=== PATIENT | female | born 1980 | race American Indian/Alaskan Native ===

== ENCOUNTER 2018-06-30 18:26 | Emergency (ER) | payer SELFPAY ==
--- NOTE | 2018-06-30 18:42 | Emergency Department Report ---
Blank Doc - Documentation Documentation: 37 y/o female come in for sob, chest discomfort and feeling hot and shaky. Was in the heat at a bike show drinking ETOH.
[2018-06-30 19:00] LABS: Basophils % (Auto) 0.3 % (0.0-1.8); Eosinophils # (Auto) 0.1 K/mm3 (0.0-0.4); Eosinophils % (Auto) 0.5 % (0.0-4.3); Hematocrit 51.2 % (30.3-42.9); Hemoglobin 17.9 gm/dl (10.1-14.3); Lymphocytes % (Auto) 16.9 % (13.4-35.0); Mean Corpuscular HGB Conc 35 % (30-34); Mean Corpuscular Volume 94 fl (79-97); Monocytes # (Auto) 1.2 K/mm3 (0.0-0.8); Monocytes % (Auto) 10.4 % (0.0-7.3); Platelet Count 260 K/mm3 (140-440); Red Blood Count 5.43 M/mm3 (3.65-5.03); Red Cell Distribution Width 14.4 % (13.2-15.2)
[2018-06-30 19:22] LABS: Alanine Aminotransferase 19 units/L (7-56); Albumin 4.9 g/dL (3.9-5); BUN/Creatinine Ratio 16; Blood Urea Nitrogen 16 mg/dL (7-17); Calcium 9.5 mg/dL (8.4-10.2); Hemolysis Index 26
[2018-06-30] MEDS ORDERED: NACL 0.9% 1000 ML 1,000 ML IV ONE (22:31)
--- NOTE | 2018-06-30 22:32 | Emergency Department Report ---
ED General Adult HPI - General Chief complaint: Weakness Stated complaint: SOB Time Seen by Provider: 06/30/18 22:25 Source: patient, family, RN notes reviewed Mode of arrival: Ambulatory Limitations: No Limitations - History of Present Illness Initial comments: This is a 37-year-old female. The patient is not known to this provider previously. The patient reports that she does not think that she is . The patient reports no chronic medical conditions. The patient reports her primary care doctor is in [place], [place] The patient reports being in her usual state of health until earlier on today, when she went outside in the very hot weather. She reports that she had 1 or 2 alcoholic drinks, was walking around, and began to feel crampy, lightheaded, fatigued, and feels like she nodded out. She did not fall or hit her head. She denies headache, neck pain, chest pain, abdominal pain, focal extremity weakness, numbness, and denies irritative, obstructive urinary symptoms. The patient denies leg pain, leg swelling. The patient denies all contraceptive use. The patient denies DVT, pulmonary embolus risk factors. The patient indicates that she feels slightly weak at this time, but denies physical pain. Her symptoms are mostly resolved at this point time. -: Gradual Severity scale (0 -10): 0 Consistency: now resolved Improves with: rest - Related Data Allergies Allergy/AdvReac Type Severity Reaction Status Date / Time No Known Allergies Allergy Verified 06/30/18 22:38 ED Review of Systems ROS: Stated complaint: SOB Other details as noted in HPI Constitutional: malaise, weakness Eyes: denies: eye discharge ENT: denies: epistaxis Respiratory: denies: cough Cardiovascular: denies: chest pain Gastrointestinal: denies: abdominal pain Genitourinary: denies: dysuria Musculoskeletal: arthralgia, myalgia Skin: denies: lesions Neurological: weakness. denies: numbness, paresthesias, confusion Psychiatric: anxiety ED Past Medical Hx - Social History Smoking Status: Current Some Day Smoker Substance Use Type: Alcohol, Marijuana ED Physical Exam - General Limitations: No Limitations General appearance: alert, anxious - Head Head exam: Present: atraumatic, normocephalic - Eye Eye exam: Present: normal appearance, PERRL, EOMI, other (visual acuity intact to finger counting, color perception, reading at a close distance). Absent: nystagmus - ENT ENT exam: Present: normal exam, normal orophraynx, mucous membranes moist, normal external ear exam - Neck Neck exam: Present: normal inspection, full ROM. Absent: tenderness, meningismus - Respiratory Respiratory exam: Present: normal lung sounds bilaterally. Absent: respiratory distress - Cardiovascular Cardiovascular Exam: Present: regular rate, normal rhythm, normal heart sounds. Absent: bradycardia, tachycardia, irregular rhythm, systolic murmur, diastolic murmur, rubs, gallop - GI/Abdominal GI/Abdominal exam: Present: soft. Absent: distended, tenderness, guarding, rebound, rigid, pulsatile mass - Extremities Exam Extremities exam: Present: normal inspection, full ROM, other (2+ pulses noted i n the bilateral upper, lower extremities. Compartments soft. No long bony tenderness. The pelvis is stable.). Absent: pedal edema, joint swelling, calf tenderness - Back Exam Back exam: Present: normal inspection, full ROM. Absent: tenderness, CVA tenderness (R), CVA tenderness (L), paraspinal tenderness, vertebral tenderness - Neurological Exam Neurological exam: Present: alert, oriented X3, normal gait (there is no past- pointing. There is normal [id number]. There is no pronator drift.), other (Extraocular movements intact. Tongue midline. No facial droop. Facial sensation intact to light touch in the V1, V2, V3 distribution bilaterally. 5 and 5 strength in 4 extremities.. Sensation is intact to light touch in 4 extremities.). Absent: motor sensory deficit - Psychiatric Psychiatric exam: Present: anxious - Skin Skin exam: Present: warm, dry, intact, normal color. Absent: rash ED Course Vital Signs 06/30/18 06/30/18 18:32 22:27 Temperature 98.3 F 98.2 F Pulse Rate 113 H 71 Respiratory 28 H 20 Rate Blood Pressure 174/118 Blood Pressure 148/108 [Left] O2 Sat by Pulse 99 100 Oximetry - Reevaluation(s) Reevaluation #1: 06/30/18 22:54 Differential diagnosis, including but not limited to: Anxiety, dehydration, heat exhaustion, myositis, electrolyte derangement Assessment and plan: 37-year-old female, no DVT or pulmonary embolus risk factors, low risk by well's criteria, tachycardia resolved, tachypnea resolved, not hypoxic, walking with a steady gait, and clinically sober at this time. Suspect resolving heat exhaustion. Screening laboratory studies so far unremarkable. EKG pending. Additional laboratory studies pending. Urinalysis pending at this time. Reevaluation #2: 06/30/18 23:27 Laboratory studies unremarkable. Patient walking around with a steady gait. The patient is hemodynamically stable. Bacteria is asymptomatic. The patient may follow up with an outpatient primary care doctor for this. Reevaluation #3: 06/30/18 23:34 The patient is reassessed. She reports she feels completely improved. She reports readiness for discharge. Discussed laboratory findings and counseling with patient. ED Medical Decision Making - Lab Data Result diagrams: 06/30/18 18:48 06/30/18 18:48 Vital Signs - 24 hr 06/30/18 06/30/18 18:32 22:27 Temperature 98.3 F 98.2 F Pulse Rate 113 H 71 Respiratory 28 H 20 Rate Blood Pressure 174/118 Blood Pressure 148/108 [Left] O2 Sat by Pulse 99 100 Oximetry Lab Results 06/30/18 06/30/18 Range/Units 18:48 18:48 WBC 11.8 H (4.5-11.0) K/mm3 RBC 5.43 H (3.65-5.03) M/mm3 Hgb 17.9 H (10.1-14.3) gm/dl Hct 51.2 H (30.3-42.9) % MCV 94 (79-97) fl MCH 33 H (28-32) pg MCHC 35 H (30-34) % RDW 14.4 (13.2-15.2) % Plt Count 260 (140-440) K/mm3 Lymph % (Auto) 16.9 (13.4-35.0) % [place] % (Auto) 10.4 H (0.0-7.3) % Eos % (Auto) 0.5 (0.0-4.3) % Baso % (Auto) 0.3 (0.0-1.8) % Lymph # 2.0 (1.2-5.4) K/mm3 [place] # 1.2 H (0.0-0.8) K/mm3 Eos # 0.1 (0.0-0.4) K/mm3 Baso # 0.0 (0.0-0.1) K/mm3 Seg Neutrophils % 71.9 H (40.0-70.0) % Seg Neutrophils # 8.5 H (1.8-7.7) K/mm3 Sodium 133 L (137-145) mmol/L Potassium 4.5 (3.6-5.0) mmol/L Chloride 94.2 L (98-107) mmol/L Carbon Dioxide 23 (22-30) mmol/L Anion Gap 20 mmol/L BUN 16 (7-17) mg/dL Creatinine 1.0 (0.7-1.2) mg/dL Estimated GFR > 60 ml/min BUN/Creatinine Ratio 16 % Glucose 94 (65-100) mg/dL Calcium 9.5 (8.4-10.2) mg/dL Total Bilirubin 1.10 (0.1-1.2) mg/dL AST 23 (5-40) units/L ALT 19 (7-56) units/L Alkaline Phosphatase 72 (35-129) units/L Total Protein 8.4 H (6.3-8.2) g/dL Albumin 4.9 (3.9-5) g/dL Albumin/Globulin Ratio 1.4 % - EKG Data -: EKG Interpreted by Nv EKG shows normal: sinus rhythm Rate: normal - EKG Data When compared to previous EKG there are: previous EKG unavailable 06/30/18 23:10 This is a sinus rhythm, 72 bpm, normal axis, QTC within normal limits, motion artifact, borderline poor R-wave progression, this EKG is not consistent with ST elevation myocardial infarction. Critical care attestation.: If time is entered above; I have spent that time in minutes in the direct care of this critically ill patient, excluding procedure time. ED Disposition Clinical Impression: Heat exhaustion Qualifiers: Encounter type: initial encounter Qualified Code(s): T67.5XXA - Heat exhaustion, unspecified, initial encounter Disposition: DC-01 TO HOME OR SELFCARE Is pt being admited?: No Does the pt Need Aspirin: No Condition: Stable Instructions: Fatigue (ED) Additional Instructions: Please make certain to to drink 6-8 cups of water per 24 hours. Avoid all limited consumption of alcohol. Mixture into eat at least 3-5 small balanced meals every 24 hours. Follow-up with the primary care doctor within the next 7- 10 days. Avoid excessive exposure and prolonged exposure to the heat. Return to the emergency room right away with new pain, worsened pain, migration of pain, projectile vomiting, change in mental status, confusion, inability to tolerate liquid feeds, new, worsening or different symptoms. Urinalysis demonstrated bacteria in the urine today, without symptoms, please follow up with her primary care doctor for this within the recommended timeframe. Referrals: [facility] [Provider Group] - 3-5 Days [facility] [Provider Group] - 3-5 Days
[2018-06-30] MEDS ORDERED: D5/0.45NS 1,000 ML IV SCH (23:00)
[2018-06-30 23:12] LABS: Bacteria,Urine 4+ /HPF (Negative); Bilirubin,Urine NEG (Negative); Blood,Urine LG (Negative); Color,Urine Yellow (Yellow); Mucus,Urine FEW /HPF; Urobilinogen,Urine < 2.0 mg/dL (<2.0)
[2018-06-30 23:17] LABS: Amphetamine Screen,Urine PRESUMPTIVE NEGATIVE; Benzodiazepines Screen,Urine PRESUMPTIVE NEGATIVE; Cocaine Screen,Urine PRESUMPTIVE NEGATIVE; Methadone Screen,Urine PRESUMPTIVE NEGATIVE; Opiate Screen,Urine PRESUMPTIVE NEGATIVE
[2018-06-30 23:34] LABS: Cannabinoid Screen,Urine PRESUMPTIVE POSITIVE
[2018-07-01 02:23] VITALS: BP 112/76
== END 2018-07-01 01:13 | disposition home or self-care (01) ==
LOC: ED 18:26
DX: T67.5XXA Heat exhaustion, unspecified, initial encounter (principal); F17.200 Nicotine dependence, unspecified, uncomplicated; F12.10 Cannabis abuse, uncomplicated; X30.XXXA Exposure to excessive natural heat, initial encounter; Y93.89 Activity, other specified; Y92.89 Other specified places as the place of occurrence of the external cause; Y99.8 Other external cause status
CPT/HCPCS: 36415; 80053; 80307; 81001; 82550; 83735; 84702; 85025; 93005; 93010; 96360; 96361; 99284; G0480; J7030; 80320